=== PATIENT | male | born 1950 ===

== ENCOUNTER 2016-09-02 08:43 | Day surgery (SDC) | payer MEDICARE, MEDICAID ==
[2016-08-29 11:20] VITALS: BMI 28.1
[2016-09-02] MEDS ORDERED: Bacitracin 50,000 UNIT in Sodium Chloride 0.9% Irrig 1,000 ML IR SCH (09:09)
[2016-09-02] MEDS ORDERED: Midazolam 2 MG/2 ML VIAL ONE (09:15)
[2016-09-02] MEDS ORDERED: Propofol 10 mg/ml Inj (20 ML) ONE (09:15)
[2016-09-02] MEDS ORDERED: Gentamicin 160 MG in Sodium Chloride 0.9% 100 ML IVPB ONE (10:39)
[2016-09-02] MEDS ORDERED: Lactated Ringer's 1,000 ML IV ONE ×3 (10:44→12:47)
[2016-09-02] MEDS ORDERED: Sodium Chloride 0.9% 40 ML IV ONE (11:30)
[2016-09-02] MEDS ORDERED: Morphine 4 MG/ML VIAL ONE (13:28)
[2016-09-02] MEDS ORDERED: HYDROmorphone 0.5 mg/0.5 ml ISec IVP PRN (13:50)
--- NOTE | 2016-09-02 14:08 | PCM.SURG1 ---
Surgeon's Initial Post Op Note - Surgeon's Notes Surgeon: Robbin Joseph Office Services Representative: Kiara Farrell Type of Anesthesia: General LMA Pre-Operative Diagnosis: Organic erctile dysfunction Operative Findings: same Post-Operative Diagnosis: same Operation Performed: Insertion of inflatable penile prosthesis Specimen/Specimens Removed: urine Estimated Blood Loss: EBL {In ML}: 40 Blood Products Given: N/A Drains Used: No Drains Post-Op Condition: Good Date of Surgery/Procedure: 09/02/16 Time of Surgery/Procedure: 13:40
[2016-09-02 15:30] VITALS: O2SAT 98
[2016-09-03 11:59] VITALS: BP 139/78; PULSE 75; RESP 20; TEMP 98
--- NOTE | 2016-09-06 13:36 | OP ---
PROCEDURE DATE: 09/02/2016 PREOPERATIVE DIAGNOSIS: Organic erectile dysfunction. POSTOPERATIVE DIAGNOSIS: Organic erectile dysfunction. PROCEDURE: Insertion of three piece inflatable penile prosthesis. OPERATING SURGEON: Dr. Azra Joseph. DESCRIPTION OF PROCEDURE: The patient was placed in the supine position. General anesthesia was administered. Perioperative antibiotics were administered. The abdomen and genitalia and perineum and thigh were prepped and draped in the sterile fashion. The patient was placed in the frog-leg position prior to the meticulous ------ and Betadine scrub to the penis. Thereafter, ChloraPrep skin prep was performed. The patient was returned to the supine position. The abdomen and genitalia were prepped in the sterile fashion. A 14-Danish Cali catheter was inserted previously. The penis was placed on central attraction using the skin hook and placed within the urethral meatus and using the ring retractor. A transverse incision was made on the scrotal side of the penoscrotal junction. Incision was sent through the skin and subcutaneous tissues. Complete hemostasis was achieved using gentle electrocautery. The skin and subcutaneous tissue were dissected down to the level of the corpora cavernosa on the right side. Skin hooks were used for appropriate retraction and exposure. The ------ was developed across the midline over the corpora cavernosa and urethra to expose the left side of the operative field. Longitudinal corpora was made on each side between prostate sutures of 3-0 PDS. The corpora were dilated proximally and distally using the dilators. The intracorporeal length was measured. A total of 19 cm was determined to be the proper intracorporeal length on each side. Dilation was performed proximally and distally. The cord ------ proper positioning of the proximal ------ was confirmed. The corpora was irrigated as well as the wounds were irrigated throughout the procedure with antibiotic solution. There was no blood through meatus. Using the ------ AMS 700 LGX cylinders were placed. A 15 cm cylinder with a 4 cm rear tip human resource assistant were placed on each side. There was noted to be excellent positioning within the corpora both proximally and distally. The cylinders were inflated with use of the pump attached to the saline syringe. Excellent placement was noted. The cylinders were then deflated. The corporotomy wounds were closed with the previously placed interrupted horizontal mattress sutures of 3-0 PDS. Attention was then turned towards placement of the reservoir. The right external inguinal ring was palpated digitally. Central attraction on the external ring allowed. Tightening of the floor of the inguinal canal, which was penetrated with a Metzenbaum scissors. Finger dissection followed by Metzenbaum scissors within the retropubic space. The reservoir was then slipped into the appropriate position as the finger was withdrawn. The reservoir was filled to a volume of 95 mL. The reservoir was noted to be seated well in position, without migration, and without visibility or palpation of any inguinal canal as viewed from the skin. The pump was placed in the appropriate dependent scrotal position between the testes. The deflation was well palpated easily and well palpated anteriorly. The pump device and its circular bulb were well palpated inferiorly. The tubing was appropriately trimmed. The reservoir was connected to the pump with the connector device. The inflation and deflation of the penile prosthesis was then performed. The device cycled well. The wound was copiously irrigated again with the antibiotic solution. The wound was then closed with interrupted subcutaneous layer of 3-0 Dexon. The skin was reapproximated with a vertical mattress sutures of 4-0 Nylon. A sterile dressing and compressive dressing was applied using the " mummy" wrap. The Cali catheter was connected to straight drainage. Bladder drainage was cleared. The patient tolerated the procedure without complications. The patient was transferred to the recovery room in satisfactory condition. Azra Joseph MD
== END 2016-09-02 16:40 | disposition home or self-care (01) ==
LOC: C.SDS 08:43
PROVIDERS: ATTEND Urology
DX: N52.9 Male erectile dysfunction, unspecified (principal)
CPT/HCPCS: 54401; 87086; C1813; J1170; J1580; J2250; J2270; J2405; J2704; J3010; J7030; J7050; J7120

== ENCOUNTER 2017-12-25 05:40 | Day surgery (SDC) | payer MEDICARE, MEDICAID ==
[2016-08-29 11:19] VITALS: BMI 28.1
[2017-12-25 06:11] VITALS: BP 142/82; PULSE 52; RESP 18; TEMP 97.7; O2SAT 99
[2017-12-25] MEDS ORDERED: Vancomycin 1 GM 1 GM/250 ML BAG IVPB STA (07:04)
[2017-12-25] MEDS ORDERED: Propofol 10 mg/ml Inj (20 ML) ONE (07:49)
[2017-12-25] MEDS ORDERED: Midazolam 2 MG/2 ML VIAL ONE (07:49)
[2017-12-25] MEDS ORDERED: Bacitracin 50,000 UNIT in Sodium Chloride 0.9% Irrig 1,000 ML IR SCH (08:15)
== END 2017-12-25 08:30 | disposition home or self-care (01) ==
LOC: C.SDS 05:40
PROVIDERS: ATTEND Urology
DX: N52.9 Male erectile dysfunction, unspecified (principal)
CPT/HCPCS: 54405; J2704; J3370

== ENCOUNTER 2018-03-06 09:34 | Outpatient (CLI) | payer MEDICARE, MEDICAID | END 2018-03-06 09:35 | disposition home or self-care (01) | LOC: C.PAT 09:34 | DX: N52.9 Male erectile dysfunction, unspecified (principal) ==

== ENCOUNTER 2018-03-12 06:48 | Day surgery (SDC) | payer MEDICARE, MEDICAID ==
[2016-08-29 11:19] VITALS: BMI 28.1
[2018-03-12] MEDS ORDERED: Vancomycin 1 gm/NS 200 ml 1 GM/200 ML BAG IVPB ONE (09:00)
[2018-03-12] MEDS ORDERED: Bacitracin 50,000 UNIT in Sodium Chloride 0.9% Irrig 1,000 ML IR SCH (09:15)
[2018-03-12] MEDS ORDERED: Midazolam 2 MG/2 ML VIAL ONE (09:28)
[2018-03-12] MEDS ORDERED: Propofol 10 mg/ml Inj (20 ML) ONE (09:28)
[2018-03-12] MEDS ORDERED: Lidocaine Hydrochloride 5 ML INJ ONE (09:40)
[2018-03-12] MEDS ORDERED: Gentamicin 80 mg in 0.9% NS 160 MG/200 ML BAG IVPB ONE (09:55)
[2018-03-12] MEDS ORDERED: Lactated Ringer's 1,000 ML IV SCH (11:30)
[2018-03-12] MEDS ORDERED: HYDROmorphone 0.5 mg/0.5 ml ISec ONE (11:34)
[2018-03-12] MEDS: HYDROmorphone 0.5 mg/0.5 ml ISec IVP PRN ×2 (11:34→11:54)
--- NOTE | 2018-03-12 11:44 | PCM.SURG1 ---
Surgeon's Initial Post Op Note - Surgeon's Notes Surgeon: Robbin Joseph [employer] Program Coordinator: Aaron Type of Anesthesia: General LMA Pre-Operative Diagnosis: Floppy Glans Syndrome Operative Findings: same Post-Operative Diagnosis: same Operation Performed: Penile Glanulopexy/Glanuloplasty Specimen/Specimens Removed: none Estimated Blood Loss: EBL {In ML}: 5 Blood Products Given: N/A Drains Used: No Drains Post-Op Condition: Good Date of Surgery/Procedure: 03/12/18 Time of Surgery/Procedure: 11:25
[2018-03-12 12:42] VITALS: BP 119/77; PULSE 84; RESP 19; TEMP 97.4; O2SAT 98
--- NOTE | 2018-03-15 06:16 | OP ---
PROCEDURE DATE: 03/12/2018 UROLOGY OPERATIVE REPORT PREOPERATIVE DIAGNOSES: Hypermobile glans, supersonic transporter deformity. POSTOPERATIVE DIAGNOSES: Hypermobile glans, supersonic transporter deformity. PROCEDURE: Penile glandulopexy, penile glanuloplasty. DESCRIPTION OF PROCEDURE: Procedure is as follows. The patient received perioperative antibiotics. The patient was in the supine position. The genitalia were prepped and draped in a sterile fashion. The patient was examined after administration of anesthesia. There was noted to be hypermobility of the glans. The penile prosthesis was noted to be in proper position. The penile prosthesis inflated and deflated well. The curvilinear incision was made under the penile shaft approximately 0.5 cm proximal to the muhammad. One incision was made on each side approximately 1 cm in length over each corpora cavernosa. The incision was extended through the subcutaneous tissue. Dissection was performed in a distal direction towards the glans, elevating the glans from the corpora, using sharp dissection with scissors. The dissection was performed first on the left side and then on the right side. The proximal dissection was performed down through the corpora cavernosa of tunica. The penile prosthesis were deflated. Sutures into the tunica albuginea of the corpora cavernosa were placed in a horizontal fashion using 2-0 Ethicon sutures, performed centrally in each side, both right and left sides. A suture was placed into the glans through the skin incision, and the suture was placed from right to left, into the glans, incorporating the glandular fascia, below the skin, for performance of the glandulopexy. The 2-0 Ethicon suture was used for suture placement, employing a curved Romel needle. Excellent mobility of the glans was demonstrated by placing tension interaction on the glanular suture. The glandular suture was secured through the previously placed tunical sutures, thus restoring the glans, and straight position and alignment of corpora of the penile shaft. The wounds were copiously irrigated with antibiotic solution throughout the procedure. The subcutaneous tissues overlying the sutures were closed with interrupted sutures of the 3-0 Monocryl. The skin incision was closed with a continuous subcuticular suture of 3-0 Monocryl. Sterile dressing involved compressive dressings were applied. The patient tolerated the procedure without complication. The penile prosthesis was inflated and deflated and demonstrated an excellent, improved, cosmetic, and functional result. Azra Joseph MD
== END 2018-03-12 14:30 | disposition home or self-care (01) ==
LOC: C.SDS 06:48
PROVIDERS: ATTEND Urology
DX: N52.9 Male erectile dysfunction, unspecified (principal)
CPT/HCPCS: 54401; C1813; J1170; J1580; J2250; J2405; J2704; J3010; J3370; J7030; J7120